=== PATIENT | male | born 1970 | race Caucasian/White ===

== ENCOUNTER 2019-06-12 18:16 | Emergency (ER) | payer SELFPAY ==
[2019-06-12 18:27] VITALS: BP 109/70; PULSE 82; RESP 16; TEMP 36.9; O2SAT 99
--- NOTE | 2019-06-12 18:49 | ED.GENADULT ---
HPI - General Adult General Chief complaint: Upper Respiratory Infection Stated complaint: Cold/Flu symptoms Time Seen by Provider: 06/12/19 18:49 Source: patient Mode of arrival: ambulatory Limitations: no limitations History of Present Illness HPI narrative: 48-year-old male patient presents to the [facility] with complaints of a sore throat and right ear pain for the past 3 days. Patient denies any fevers that he is aware of. Patient denies any coughing, chest pain, shortness of breath, abdominal pain, nausea, vomiting or diarrhea. Patient states he is an active smoker. Patient states he has been taking NyQuil for his symptoms. patient denies any recent travel within the [place] or outside of the country. Related Data Home Medications Medication Instructions Recorded Confirmed No Home Medications 06/12/19 06/12/19 Allergies Allergy/AdvReac Type Severity Reaction Status Date / Time No Known Allergies Allergy Verified 06/12/19 18:44 Review of Systems Review of Systems: Narrative: CONSTITUTIONAL: Denies fever, chills, or sweats. EYES: Denies visual changes, redness, or discharge. ENT: Denies rhinorrhea, congestion, positive sore throat, and right-sided otalgia. CARDIOVASCULAR: Denies chest pain, palpitations, or edema. RESPIRATORY: Denies cough or dyspnea. GASTROINTESTINAL: Denies abdominal pain, nausea, vomiting, or diarrhea. GENITOURINARY: Denies dysuria or hematuria. SKIN: Denies rash or itching. MUSCULOSKELETAL: Denies back pain, joint pain, or myalgia. NEUROLOGIC: Denies headache, numbness, or weakness. PSYCHIATRIC: Denies anxiety or depression. PMFSH Social History Social History Gender identity (if verbalized by the patient): Male Comments At the time of my signature I agree with nursing past medical history, surgical, social, and family history. There is no relevant family history pertinent to the presenting complaint. Exam Narrative: Exam Narrative: GENERAL: Well-appearing, well-nourished, and in no acute distress. HEAD: Normocephalic, atraumatic. EYES: PERRLA and EOMI. ENT: Nares with erythema and edema noted bilaterally, no rhinorrhea or epistaxis. Mucous membranes moist. Posterior pharynx has some erythema and tonsil enlargement on the right side but no exudates or lesions present. Bilateral TMs are clear but there is slight fluid noted behind them and they do appear cloudy. No erythema or foreign bodies in the canal. NECK: Supple. No lymphadenopathy CHEST: Clear to auscultation. No respiratory distress. HEART: Regular rate and rhythm. No murmur heard. Normal peripheral pulses. ABDOMEN: Soft, nontender, nondistended, normal active bowel sounds. EXTREMITIES: Normal range of motion. No edema. SKIN: Warm, dry, no rash. NEURO: No focal deficits. Alert and oriented x3. Course Vital Signs Vital signs: Vital Signs Temperature 36.9 C 06/12/19 18: Pulse Rate 82 06/12/19 18: Respiratory Rate 16 06/12/19 18: Blood Pressure 109/70 06/12/19 18:27 Pulse Oximetry 99 06/12/19 18: Temperature 36.9 C 06/12/19 18:27 Pulse Rate 82 06/12/19 18:27 Respiratory Rate 16 06/12/19 18:27 Blood Pressure 109/70 06/12/19 18:27 Pulse Oximetry 99 06/12/19 18:27 Vital signs reviewed. Medical Decision Making Differential Diagnosis Differential Diagnosis: Differential diagnosis: Allergic rhinitis, chronic sinusitis, tonsillitis, acute sinusitis, infectious mononucleosis, seasonal influenza, pertussis, diphtheria, meningococcal disease, viral syndrome, viral bronchitis, RSV. Discussed with patient that he is negative today for strep as well as influenza. Discussed with him that we will send his strep swab off to the lab for further testing if it does come back positive in the next day or 2 [address] call and place him on antibiotics. Discussed with him that most likely this could be some drainage that is draining to
== END 2019-06-12 19:02 | disposition home or self-care (01) ==
PROVIDERS: Emergency Provider Nurse Practitioner Family
DX: J01.90 Acute sinusitis, unspecified (principal); J02.9 Acute pharyngitis, unspecified; H93.8X3 Other specified disorders of ear, bilateral; F17.200 Nicotine dependence, unspecified, uncomplicated
CPT/HCPCS: 87081; 87804; 87880; 99213; G0463

== ENCOUNTER 2019-08-10 19:15 | Emergency (ER) | payer SELFPAY ==
[2019-08-10 19:17] VITALS: BP 113/79; PULSE 73; RESP 18; TEMP 37; O2SAT 97
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
[2019-08-10 19:53] VITALS: BP 132/70; PULSE 80; RESP 20; O2SAT 99
[2019-08-10] MEDS: KETOROLAC (*BKC) 60 MG/2 ML VIAL IM (19:53)
[2019-08-10] MEDS: DIAZEPAM 5 MG TABLET PO (19:53)
== END 2019-08-10 19:54 | disposition home or self-care (01) ==
PROVIDERS: Emergency Provider Emergency Medicine
DX: S39.012A Strain of muscle, fascia and tendon of lower back, initial encounter (principal); V49.40XA Driver injured in collision with unspecified motor vehicles in traffic accident, initial encounter; F17.200 Nicotine dependence, unspecified, uncomplicated
CPT/HCPCS: 96372; 99283; A9270; J1885